=== PATIENT | female | born 1990 | race American Indian/Alaskan Native ===

== ENCOUNTER 2021-02-19 06:32 | Emergency (ER) | payer SELFPAY ==
[2021-02-19 07:00] VITALS: BP 115/78
[2021-02-19] MEDS ORDERED: IBUPROFEN 800 MG TAB PO ONE (07:14)
--- NOTE | 2021-02-19 07:17 | Emergency Department Report ---
ED ENT HPI - General Chief complaint: Sore Throat Stated complaint: SORE THROAT Time Seen by Provider: 02/19/21 07:09 Source: patient Mode of arrival: Ambulatory Limitations: No Limitations - History of Present Illness Initial comments: 30-year-old female presents to the ER today with complaints of sore throat. Patient states "I think I got strep throat." He states that his symptoms started about 2 days ago. She reports associated subjective fever, chills and difficulty swallowing. She denies any runny nose, nasal congestion, cough, difficulty breathing or any other symptoms at this time. She denies any apparent ill contacts or recent travel. complaint: sore throat -: days(s) (2) - Related Data Previous Rx's Medication Instructions Recorded Last Taken Type Amoxicillin [Trimox CAP] 500 mg PO Q8H #30 capsule 02/19/21 Unknown Rx Ibuprofen [Motrin] 800 mg PO Q8HR PRN #30 tablet 02/19/21 Unknown Rx predniSONE [Deltasone] 40 mg PO QDAY #10 tab 02/19/21 Unknown Rx Allergies Allergy/AdvReac Type Severity Reaction Status Date / Time No Known Allergies Allergy Verified 02/19/21 06:56 ED Dental HPI - General Chief complaint: Sore Throat Stated complaint: SORE THROAT Time Seen by Provider: 02/19/21 07:09 Source: patient Mode of arrival: Ambulatory Limitations: No Limitations - Related Data Previous Rx's Medication Instructions Recorded Last Taken Type Amoxicillin [Trimox CAP] 500 mg PO Q8H #30 capsule 02/19/21 Unknown Rx Ibuprofen [Motrin] 800 mg PO Q8HR PRN #30 tablet 02/19/21 Unknown Rx predniSONE [Deltasone] 40 mg PO QDAY #10 tab 02/19/21 Unknown Rx Allergies Allergy/AdvReac Type Severity Reaction Status Date / Time No Known Allergies Allergy Verified 02/19/21 06:56 ED Review of Systems ROS: Stated complaint: SORE THROAT Other details as noted in HPI Comment: All other systems reviewed and negative Constitutional: chills, fever ENT: throat pain ED Past Medical Hx - Past Medical History Previous Medical History?: No - Surgical History Past Surgical History?: No - Social History Smoking Status: Never Smoker Substance Use Type: None - Medications Home Medications: Home Medications Medication Instructions Recorded Confirmed Last Taken Type Amoxicillin [Trimox CAP] 500 mg PO Q8H #30 capsule 02/19/21 Unknown Rx Ibuprofen [Motrin] 800 mg PO Q8HR PRN #30 tablet 02/19/21 Unknown Rx predniSONE [Deltasone] 40 mg PO QDAY #10 tab 02/19/21 Unknown Rx ED Physical Exam - General Limitations: No Limitations General appearance: alert, in no apparent distress - Head Head exam: Present: atraumatic, normocephalic, normal inspection - Eye Eye exam: Present: normal appearance, PERRL, EOMI Pupils: Present: normal accommodation - ENT ENT exam: Present: normal exam, mucous membranes moist, TM's normal bilaterally - Expanded ENT Exam Expanded Mouth exam: Present: normal external inspection. Absent: drooling, trismus, muffled voice, tongue normal, tongue elevation Throat exam: Positive: tonsillar erythema, tonsillomegaly, tonsillar exudate (Mainly on the right). Negative: R peritonsillar mass, L peritonsillar mass - Neck Neck exam: Present: normal inspection, full ROM, lymphadenopathy (Prominent anterior cervical adenopathy). Absent: meningismus - Respiratory Respiratory exam: Present: normal lung sounds bilaterally. Absent: respiratory distress, wheezes, rales, rhonchi, stridor - Cardiovascular Cardiovascular Exam: Present: regular rate, normal rhythm, normal heart sounds - Neurological Exam Neurological exam: Present: alert, oriented X3, CN II-XII intact, normal gait - Psychiatric Psychiatric exam: Present: normal affect, normal mood - Skin Skin exam: Present: intact ED Course Vital Signs 02/19/21 06:56 Temperature 100.8 F H Pulse Rate 87 Respiratory 16 Rate Blood Pressure 115/78 [Left] O2 Sat by Pulse 100 Oximetry ED Medical Decision Making - Medical Decision Making The patient is resting comfortably and is well-appearing and in no acute distress. There is no respiratory distress, no stridor and the mental status is normal. Her neurological exam is normal, there is no significant signs of dehydration. Her history, exam, diagnostic testing and the patient current condition does not suggest an infectious process such as retropharyngeal abscess, epiglottitis, peritonsillar abscess, Adalberto's angina, mastoiditis, sepsis or any significant pathology warranting further testing, continued ED treatment, admission, consultation or any other evaluation at this time. Patient has a mild fever of 100.8 but remaining vital signs otherwise stable. Patient will be treated for suspected strep throat infection. Discussed suspected diagnosis and treatment plan with patient. She expresses understanding of instructions and agree with plan. Patient stable at time of discharge. Critical care attestation.: If time is entered above; I have spent that time in minutes in the direct care of this critically ill patient, excluding procedure time. ED Disposition Clinical Impression: Exudative pharyngitis Disposition: - TO HOME OR SELFCARE Is pt being admited?: No Does the pt Need Aspirin: No Condition: Stable Instructions: Strep Throat, Adult, Pharyngitis, [id number] Additional Instructions: Take the prednisone, motrin and the amoxicillin as prescribed. I recommend lots of fluids and soft diet. Follow up with PCP as needed. Return to ED if worse. Prescriptions: predniSONE [Deltasone] 40 mg PO QDAY #10 tab Ibuprofen [Motrin] 800 mg PO Q8HR PRN #30 tablet PRN Reason: pain Amoxicillin [Trimox CAP] 500 mg PO Q8H #30 capsule Referrals: TR[facility] MD [Staff Physician] - 3-5 Days Forms: Work/School Release Form(ED) Time of Disposition: 07:17
== END 2021-02-19 07:30 | disposition home or self-care (01) ==
LOC: ED 06:32
DX: J02.9 Acute pharyngitis, unspecified (principal); Z79.899 Other long term (current) drug therapy
CPT/HCPCS: 99282

== ENCOUNTER 2021-10-22 08:52 | Emergency (ER) | payer SELFPAY ==
[2021-10-22 08:57] VITALS: BP 152/69
--- NOTE | 2021-10-22 10:45 | XRay Report ---
CHEST 2 VIEWS INDICATION: cough. COMPARISON: None FINDINGS: SUPPORT DEVICES: None. HEART: Within normal limits. LUNGS/PLEURA: No acute air space or interstitial disease. No pneumothorax. ADDITIONAL FINDINGS: None. IMPRESSION: 1. No acute findings. Signer Name: Ian Malone MD Signed: 10/22/2021 10:41 AM Workstation Name: [id number]
--- NOTE | 2021-10-22 11:21 | Emergency Department Report ---
ED General Adult HPI - General Chief complaint: Upper Respiratory Infection Stated complaint: COUGH AND CONGESTION Time Seen by Provider: 10/22/21 11:00 Source: patient Mode of arrival: Ambulatory Limitations: No Limitations - History of Present Illness Initial comments: 30 yo AA F pt presents with complaints of cough, chills, nausea, sand congestion x 3 days. OTC theraflu not helping. Denies any PMHx. Denies hemoptysis. leg pain/swelling, hormone use, hx of DVT/PE/cancer, or loss of taste/smell. +SOB and chest pain only occurs with cough. NKDA per pt. +cigarette smoker - Related Data Previous Rx's Medication Instructions Recorded Last Taken Type Amoxicillin [Trimox CAP] 500 mg PO Q8H #30 capsule 02/19/21 Unknown Rx Ibuprofen [Motrin] 800 mg PO Q8HR PRN #30 tablet 02/19/21 Unknown Rx predniSONE [Deltasone] 40 mg PO QDAY #10 tab 02/19/21 Unknown Rx Amoxicillin [Amoxicillin TAB] 875 mg PO BID #20 tablet 10/07/21 Unknown Rx Chlorhexidine Mouthwash [Peridex] 15 ml MM BID #1 bottle 10/07/21 Unknown Rx Naproxen 500 mg PO Q12H PRN #12 tablet 10/07/21 Unknown Rx Benzonatate 200 mg PO TID PRN #30 capsule 10/22/21 Unknown Rx Loratadine 10 mg PO QDAY #10 tablet 10/22/21 Unknown Rx guaiFENesin [Guaifenesin] 1,200 mg PO BID #14 tab.er.12h 10/22/21 Unknown Rx predniSONE [Deltasone] 20 mg PO QDAY 3 Days #6 tab 10/22/21 Unknown Rx Allergies Allergy/AdvReac Type Severity Reaction Status Date / Time No Known Allergies Allergy Verified 02/19/21 06:56 ED Review of Systems ROS: Stated complaint: COUGH AND CONGESTION Other details as noted in HPI Constitutional: chills, diaphoresis, malaise. denies: fever, weakness ENT: denies: throat pain Respiratory: cough, shortness of breath, SOB with exertion, SOB at rest Cardiovascular: as per HPI. denies: edema, syncope Gastrointestinal: nausea. denies: abdominal pain, vomiting, constipation Genitourinary: denies: urgency, dysuria, frequency Musculoskeletal: denies: arthralgia Skin: denies: change in color Neurological: denies: headache ED Past Medical Hx - Past Medical History Previous Medical History?: No - Surgical History Past Surgical History?: Yes Additional Surgical History: x3 - Social History Smoking Status: Never Smoker Substance Use Type: None - Medications Home Medications: Home Medications Medication Instructions Recorded Confirmed Last Taken Type Amoxicillin [Trimox CAP] 500 mg PO Q8H #30 capsule 02/19/21 Unknown Rx Ibuprofen [Motrin] 800 mg PO Q8HR PRN #30 tablet 02/19/21 Unknown Rx predniSONE [Deltasone] 40 mg PO QDAY #10 tab 02/19/21 Unknown Rx Amoxicillin [Amoxicillin TAB] 875 mg PO BID #20 tablet 10/07/21 Unknown Rx Chlorhexidine Mouthwash [Peridex] 15 ml MM BID #1 bottle 10/07/21 Unknown Rx Naproxen 500 mg PO Q12H PRN #12 tablet 10/07/21 Unknown Rx Benzonatate 200 mg PO TID PRN #30 capsule 10/22/21 Unknown Rx Loratadine 10 mg PO QDAY #10 tablet 10/22/21 Unknown Rx guaiFENesin [Guaifenesin] 1,200 mg PO BID #14 tab.er.12h 10/22/21 Unknown Rx predniSONE [Deltasone] 20 mg PO QDAY 3 Days #6 tab 10/22/21 Unknown Rx ED Physical Exam - General Limitations: No Limitations ED Course Vital Signs 10/22/21 08:53 Temperature 98.5 F Pulse Rate 76 Respiratory 16 Rate Blood Pressure 152/69 [Left] O2 Sat by Pulse 95 Oximetry ED Medical Decision Making - Radiology Data Radiology results: report reviewed CHEST 2 VIEWS INDICATION: cough. COMPARISON: None FINDINGS: SUPPORT DEVICES: None. HEART: Within normal limits. LUNGS/PLEURA: No acute air space or interstitial disease. No pneumothorax. ADDITIONAL FINDINGS: None. IMPRESSION: 1. No acute findings. - Medical Decision Making 30 yo AA F pt presents with complaints of cough, chills, nausea, sand congestion x 3 days. OTC theraflu not helping. Denies any PMHx. Denies hemoptysis. leg pain/swelling, hormone use, hx of DVT/PE/cancer, or loss of taste/smell. +SOB and chest pain only occurs with cough. NKDA per pt. +cigarette smoker Chest x-ray is negative for any acute abnormalities. Lungs are clear on exam. Patient ambulated by this provider with pulse ox and pulse ox remained 96% and above on room air. She is nontoxic-appearing and stable for discharge home. Patient to discharge home with treatment for viral URI. Recommend patient get outpatient COVID-19 testing within the next 24 to 48 hours and self quarantine's until further instructed. Strict return precautions were discussed in detail with patient who verbalizes understanding Critical care attestation.: If time is entered above; I have spent that time in minutes in the direct care of this critically ill patient, excluding procedure time. ED Disposition Clinical Impression: Viral URI with cough Disposition: HOME / SELF CARE / HOMELESS Is pt being admited?: No Condition: Stable Instructions: Viral Respiratory Infection Prescriptions: Benzonatate 200 mg PO TID PRN #30 capsule PRN Reason: Cough predniSONE [Deltasone] 20 mg PO QDAY 3 Days #6 tab guaiFENesin [Guaifenesin] 1,200 mg PO BID #14 tab.er.12h Loratadine 10 mg PO QDAY #10 tablet Referrals: [facility] [Provider Group] - 3-5 Days
== END 2021-10-22 12:02 | disposition home or self-care (01) ==
LOC: ED 08:52
DX: J06.9 Acute upper respiratory infection, unspecified (principal); F17.200 Nicotine dependence, unspecified, uncomplicated
CPT/HCPCS: 71046; 99283

== ENCOUNTER 2022-02-25 13:07 | Emergency (ER) | payer SELFPAY | END 2022-02-26 07:00 | disposition left against medical advice (07) | LOC: ED 13:07 | DX: H57.89 Other specified disorders of eye and adnexa (principal); Z53.21 Procedure and treatment not carried out due to patient leaving prior to being seen by health care provider ==

== ENCOUNTER 2022-07-12 09:58 | Emergency (ER) | payer SELFPAY ==
[2022-07-12 10:57] VITALS: BP 119/48
== END 2022-07-12 22:00 | disposition left against medical advice (07) ==
LOC: ED 09:58
DX: J02.9 Acute pharyngitis, unspecified (principal); H92.09 Otalgia, unspecified ear; H10.029 Other mucopurulent conjunctivitis, unspecified eye; Z53.21 Procedure and treatment not carried out due to patient leaving prior to being seen by health care provider